=== PATIENT | male | born 1950 | race Caucasian/White ===

== ENCOUNTER 2024-01-17 11:48 | Inpatient (IN) | payer MEDICARE ==
[~2024-01-17] VITALS: Ht 182.9 cm; Wt 91.4 kg
[~2024-01-17 11:48] MED LIST: AMLODIPINE2.5 MG PO; ASPIRIN LOW DOS81 M2 PO; ASPIRIN81 M1 OR; BENAZEPRIL10 MG OR; BENICAR HCT1 TA2 PO; DIOVAN320 MG OR; LIPITOR20 M1 PO; LOSARTAN/HCT1 TA2 PO; OMEGA-3 FISH1000 MG PO; PERCOCET 5/325M1 TAB PO; TRICOR145 MG OR; VITAMIN D31000 UNI1 PO
--- NOTE | 2024-01-17 12:15 | NUR ---
Patient arrived to unit, ambulatory. Accompanied by . Patient was direct admit from Dr Reese office, patient has suspected osteomyelitis of toe. Plan for procedure tomorrow. Patient is A&Ox4, on room air, denies any pain at this time. Oriented to room, call light, plan of care, etc. All needs addressed at this time.
[2024-01-17] MEDS ORDERED: CHLORTHALIDONE25 MG PO (12:24)
[2024-01-17] MEDS ORDERED: TAMSULOSIN0.4 MG PO (12:25)
[2024-01-17 12:43] VITALS: BP 137/80
[2024-01-17 13:29] LABS: BASO% 0.2 % (0-3); EOS% 1.8 % (0-8); HEMATOCRIT 44.6 % (39.0-50.0); HEMOGLOBIN 15.2 g/dl (14.0-18.0); LYMPH% 26.8 % (15-41); MEAN CELL VOLUME 92.5 fL CALC (80.0-100.0); MEAN CORPUSCULAR HGB 31.5 pG CALC (26.0-32.0); MEAN CORPUSCULAR HGB CONC 34.1 g/dL CAL (32.0-36.0); MONO% 13.6 % (2-13); NEUT# 2.54 thou/uL (1.82-7.42); NEUT% 57.6 % (42-76); RED BLOOD COUNT 4.82 mill/uL (4.70-6.10); RED CELL DISTRI WIDTH 12.2 % (11.5-15.5)
[2024-01-17 13:46] LABS: ALBUMIN 3.9 g/dL (3.2-5.0); BILIRUBIN, TOTAL 0.7 mg/dL (0.2-1.3); CREATININE 1.3 mg/dL (0.7-1.3); POTASSIUM 3.5 mmol/l (3.5-5.1); TOTAL PROTEIN 7.2 g/dL (6.3-8.2)
[2024-01-17] MEDS ORDERED: LORazepam 0.5 MG/TAB PO PRN (14:45)
[2024-01-17] MEDS ORDERED: SODIUM CHLORIDE 0.9% 10 ML SYR IV PRN (14:45)
[2024-01-17] MEDS ORDERED: Polyethylene Glycol 3350 17 GM/PKT PO PRN (14:45)
[2024-01-17] MEDS ORDERED: ACETAMINOPHEN 325 MG/TAB PO PRN (14:45)
[2024-01-17] MEDS ORDERED: ALUM & MAG HYDROX-SIMETHICONE 30 ML PO PRN (14:45)
[2024-01-17 14:46] LABS: URINE BILIRUBIN - DIPSTICK Negative (NEGATIVE); URINE BLOOD DIPSTICK Negative (NEGATIVE); URINE GLUCOSE - DIPSTICK Negative (NEGATIVE); URINE KETONE Negative (NEGATIVE); URINE LEUK ESTERASE Negative (NEGATIVE); URINE NITRITE - DIPSTICK Negative (Negative); URINE PROTEIN - DIPSTICK 100 mg/dL (NEG-TRACE); URINE SPECIFIC GRAVITY 1.025; URINE UROBILINOGEN - DIPSTICK 0.2 E.U./dL (0.2)
[2024-01-17 14:48] LABS: URINE COLOR Yellow; URINE RBC 0-2 RBC/hpf (0-5); URINE WBC 0-2 WBC/hpf (0-5)
[2024-01-17] MEDS ORDERED: CEFEPIME HYDROCHLORIDE 2 GM in SODIUM CHLORIDE 0.9% 100 ML IV SCH (15:30)
[2024-01-17] MEDS ORDERED: VANCOMYCIN HCL 1 GM in SODIUM CHLORIDE 0.9% 250 ML IV SCH (16:00)
--- NOTE | 2024-01-17 16:00 | NUR ---
Patient is resting in bed, denies any pain at this time. A&Ox4, on room air, VS WNL, paced on tele monitor. Patient will be NPO after midnight tonight and patient is aware. All needs addressed at this time, call light within reach.
[2024-01-17 16:13] VITALS: BP 142/86
[2024-01-17] MEDS ORDERED: ATORVASTATIN CALCIUM 20 MG/TAB PO SCH (17:00)
[2024-01-17 18:47] VITALS: BP 136/77
[2024-01-17 19:36] VITALS: BP 136/77
--- NOTE | 2024-01-17 20:00 | NUR ---
RECIEVED PT IN BED, AWAKE, IN STABLE CONDITION. A/O X4. DENIES PAIN/DISCOMFORT AT THIS TIME. TELEMETRY #20, ROOM AIR, NO SIGNS OF DISTRESS. INDEPENDENT WITH ADL'S. ENCOURAGE TO CALL FOR ASSISTANCE WHEN NEEDED. CALL LIGHT IN REACH. WILL CONTINUE TO MONITOR.
[2024-01-17] MEDS ORDERED: DEXTROSE 5% / 0.9% NACL 1,000 ML IV PRN (21:00)
[2024-01-17] MEDS ORDERED: TAMSULOSIN HCL 0.4 MG CAP PO SCH (21:00)
[2024-01-17 23:48] VITALS: BP 144/83
[2024-01-18] VITALS (17 sets, daily range): BP systolic 129–182; BP diastolic 76–100
--- NOTE | 2024-01-18 | NUR ---
PT RESTING IN BED QUIETLY. NO COMPLAINTS. NPO FOR PROCEDURE IN AM. IV TO RFA WITH D5NS INFUSING AT 100 ML/HR. CALL LIGHT IN REACH.
--- NOTE | 2024-01-18 04:00 | NUR ---
PT AWAKE TO BATHROOM IN STABLE CONDITION. DENIES DISCOMFORT/DISTRESS. ENCOURAGE TO CALL FOR ASSISTANCE. CALL LIGHT IN REACH.
[2024-01-18 04:57] LABS: BASO% 0.7 % (0-3); EOS% 3.6 % (0-8); HEMATOCRIT 43.9 % (39.0-50.0); IMMATURE GRANULOCYTES 0.2 % (0.0-5.0); LYMPH% 28.8 % (15-41); MEAN CELL VOLUME 95.9 fL CALC (80.0-100.0); MEAN CORPUSCULAR HGB 32.8 pG CALC (26.0-32.0); MEAN CORPUSCULAR HGB CONC 34.2 g/dL CAL (32.0-36.0); NEUT# 2.5 thou/uL (1.82-7.42); NEUT% 56.7 % (42-76); RED BLOOD COUNT 4.58 mill/uL (4.70-6.10); RED CELL DISTRI WIDTH 12.3 % (11.5-15.5)
[2024-01-18 05:25] LABS: ALBUMIN 3.5 g/dL (3.2-5.0); BILIRUBIN, TOTAL 0.9 mg/dL (0.2-1.3); POTASSIUM 3.6 mmol/l (3.5-5.1); TOTAL PROTEIN 6.2 g/dL (6.3-8.2)
[2024-01-18 05:30] LABS: MAGNESIUM 1.3 mg/dL (1.6-2.3)
--- NOTE | 2024-01-18 07:32 | NUR ---
PT IS AOX4 RESTING COMFORTABLY IN BED. RESPIRATIONS ARE EVEN AND UNLABORED, LUNGS ARE CLEAR, BOWEL SOUNDS ARE ACTIVE, PEDAL PULSES ARE PALPABLE TO TOUCH, 3RD TOE ON LEFT FOOT IS SWOLLEN. PT DENIES PAIN AT THIS TIME. NPO STATUS REINFORCED. PT REPORTS HE ALREADY SPOKE TO THE DOCTOR THIS MORNING AND SIGNED CONCENT WITH ROCK DUSTER NURSE.
[2024-01-18] MEDS ORDERED: PATIENT' OWN MED 1 EA DOSE PO SCH (09:00)
[2024-01-18] MEDS ORDERED: amLODIPine BESYLATE 5 MG/TAB PO SCH (09:00)
--- NOTE | 2024-01-18 09:08 | NUR ---
S: CECILIA WEBSTER is a 73 M who presents with osteomyelitis. He has a history of HTN, BPH, pacemaker of HTN. All medications in patient's chart were reviewed. O: VS: BP 135/84mmHg, P 60bpm, RR 20breaths/min, T 96.3 F W 91.4 kg, HT 182.88 cm, Scr=1.0 mg/dL, CrCl= 83.8 ml/min A: No cultures have been ordered. P: Patient is on Cefepime HCl 2gm IV Q12H. Vancomycin ordered for pharmacy to dose. Start Vancomycin 1gm IV Q12H. Vancomycin trough is drawn before the dose on 01/19/2024 at 03:30. Vancomycin goal trough is between 15-20 mcg/mL. Pharmacy will follow and or advise on antibiotics use as needed.
--- NOTE | 2024-01-18 09:16 | NUR ---
CALL PLACED TO DR TEMPLE TO SEE IF PT IS TO TAKE THE PO CHOLRTHALIDONE THIS MORNING. WAS TOLD TO HOLD THE DIAREDIC AT THIS TIME.
[2024-01-18] MEDS ORDERED: MAGNESIUM SULFATE HEPTAHYDRATE 100 ML IV SCH (09:30)
--- NOTE | 2024-01-18 10:56 | NUR ---
PT OFF THE FLOOR VIA STAFF TRANSPORT FOR SX.
[2024-01-18] MEDS ORDERED: BUPIVACAINE HCL PF 0.5% 30 ML VIAL ONE (11:01)
[2024-01-18] MEDS ORDERED: LACTATED RINGER'S 1,000 ML IV ONE ×2 (11:14→13:38)
[2024-01-18] MEDS ORDERED: FAMOTIDINE 10MG/ML 2ML SDV IV ONE (11:20)
[2024-01-18] MEDS ORDERED: LIDOCAINE HCL 2% 2ML SDV IV ONE (12:39)
[2024-01-18] MEDS ORDERED: PROPOFOL 200 MG/20 ML VIAL IV ONE (12:39)
--- NOTE | 2024-01-18 13:59 | NUR ---
PT RETURNED TO UNIT WITH BANDAGED LEFT FOOT, PT DENIES PAIN AT THIS TIME.
[2024-01-18] MEDS ORDERED: SODIUM CHLORIDE 1,000 ML BTL IR ONE (14:21)
[2024-01-18] MEDS ORDERED: STERILE WATER FOR IRRIGATION 1,000 ML BTL IR ONE (14:21)
--- NOTE | 2024-01-18 19:20 | NUR ---
PATIENT OBSERVED RESTING IN BED. ALERT AND ORIENTED. ABLE TO MAKE NEEDS KNOWN. ASSESSMENT COMPLETE. DENIES ANY PAIN TO LEFT FOOT. DRESSING INTACT WITH JESSI BANDAGE WELL. FOOT REMAINS ELEVATED WITH PILLOW FOR PATIENT COMFORT. NO DISTRESS NOTED. BED IN LOW POSITION. CALL GEIGER IN REACH.
--- NOTE | 2024-01-19 00:58 | NUR ---
PATIENT OBSERVED RESTING IN BED WATCHING TV. NO DISTRESS NOTED. NO COMPLAINTS OF PAIN. BED REMAINS IN LOW POSITION. CALL GEIGER IN REACH.
[2024-01-19 03:25] VITALS: BP 130/79
[2024-01-19 03:53] LABS: BASO% 0.4 % (0-3); EOS% 3.7 % (0-8); HEMATOCRIT 43.7 % (39.0-50.0); HEMOGLOBIN 14.6 g/dl (14.0-18.0); IMMATURE GRANULOCYTES 0.2 % (0.0-5.0); LYMPH% 19.9 % (15-41); MEAN CELL VOLUME 94.6 fL CALC (80.0-100.0); MEAN CORPUSCULAR HGB 31.6 pG CALC (26.0-32.0); MEAN CORPUSCULAR HGB CONC 33.4 g/dL CAL (32.0-36.0); MONO% 10.7 % (2-13); NEUT# 2.98 thou/uL (1.82-7.42); NEUT% 65.1 % (42-76); RED BLOOD COUNT 4.62 mill/uL (4.70-6.10); RED CELL DISTRI WIDTH 12.2 % (11.5-15.5)
[2024-01-19 04:36] LABS: ALBUMIN 3.4 g/dL (3.2-5.0); MAGNESIUM 1.7 mg/dL (1.6-2.3); TOTAL PROTEIN 6.2 g/dL (6.3-8.2)
[2024-01-19 04:53] VITALS: BP 130/79
--- NOTE | 2024-01-19 04:54 | NUR ---
PATIENT REMAINS RESTING IN BED. ANITA MC AFTER REVIEWING TROUGH RESULT. PATIENT DENIES ANY PAIN TO LEFT FOOT. NO NEEDS AT THIS TIME.
[2024-01-19 06:55] VITALS: BP 153/83
--- NOTE | 2024-01-19 07:00 | NUR ---
DR ERVIN AT BEDSIDE GIVING AIRCRAFT PAINTER APPRENTICE NURSE ORDERS FOR SCHEDULED TYLENOL AND PRN OXYCODONE 10MG Q4.
[2024-01-19] MEDS ORDERED: oxyCODONE 10MG/APAP 325 MG 1 COMBO TAB PO PRN (07:35)
--- NOTE | 2024-01-19 07:52 | NUR ---
PATIENT A&OX3. BREATHING EVEN AND UNLABORED ON ROOM AIR. LUNG SOUNDS CLEAR. BOWELS ACTIVE IN ALL 4 QUADS. IV IN RAC INFUSING NS @100MLS. IV SITE CLEAN AND INTACT. TELE INTACT. LFT FOOT DRESSING D/C/I. DENIES ANY N/D/V. REPORTS PAIN IN LFT FOOT A 7 OUT OF 10. MEDICATION REVIEWED. BED IN LOWEST POSITION. PERSONAL ITEMS WITHIN REACH. CALL LIGHT IN REACH; PT VERBALIZED UNDERSTANDING OF USE. NO NEEDS AT THIS TIME.
--- NOTE | 2024-01-19 08:49 | NUR ---
IN ROOM WITH PT DISCUSSING PLAN OF CARE.
[2024-01-19] MEDS ORDERED: DOXYCYCLINE100 MG PO (09:23)
[2024-01-19 10:36] VITALS: BP 122/79
--- NOTE | 2024-01-19 11:15 | NUR ---
REMOVED PT'S TELE AND PLACED IN BIN AT NURSING CART. UC NOTIFIED AND AWARE.
--- NOTE | 2024-01-19 11:25 | NUR ---
DC'D PT'S IV, PT LEFT THE UNIT VIA WHEELCHAIR TRANSPOUT WITH BELONGINGS IN HAND.
[2024-01-19] MEDS ORDERED: ACETAMINOPHEN 325 MG/TAB PO SCH (12:00)
[2024-01-19] MEDS ORDERED: VANCOMYCIN HCL 1,250 MG in SODIUM CHLORIDE 0.9% 225 ML IV SCH (16:00)
== END 2024-01-19 11:25 | DRG 505 ==
LOC: MS2 11:48
PROVIDERS: Nurse Practitioner Family; ADMIT Internal Medicine; ATTEND Internal Medicine
PROC: 0Y6U0Z0 Detachment at Left 3rd Toe, Complete, Open Approach (ICD-10-PCS; principal; 2024-01-18)
DX: M86.8X7 Other osteomyelitis, ankle and foot (principal); L03.032 Cellulitis of left toe; S91.105A Unspecified open wound of left lesser toe(s) without damage to nail, initial encounter; E83.42 Hypomagnesemia; I10 Essential (primary) hypertension; I25.10 Atherosclerotic heart disease of native coronary artery without angina pectoris; N40.0 Benign prostatic hyperplasia without lower urinary tract symptoms; X58.XXXA Exposure to other specified factors, initial encounter; Z95.0 Presence of cardiac pacemaker
CPT/HCPCS: J0692; J3370; J3475

== ENCOUNTER 2024-06-17 14:41 | Inpatient (IN) | payer MEDICARE ==
[~2024-06-17] VITALS: Ht 182.9 cm; Wt 85.0 kg
[2024-06-17] VITALS (26 sets, daily range): BP systolic 113–149; BP diastolic 74–95
[~2024-06-17 14:41] MED LIST changes: +APIXABAN BASE 5 MG TAB PO SCH; +CHLORTHALIDONE25 MG PO; +DOXYCYCLINE100 MG PO; +TAMSULOSIN0.4 MG PO
--- NOTE | 2024-06-17 14:50 | NUR ---
PT TRIAGED AND PLACED BACK IN ER WAITING
[2024-06-17 16:07] LABS: BASO% 0.2 % (0-3); EOS% 1.1 % (0-8); HEMATOCRIT 42.9 % (39.0-50.0); HEMOGLOBIN 14.5 g/dl (14.0-18.0); IMMATURE GRANULOCYTES 0.5 % (0.0-5.0); LYMPH% 7.1 % (15-41); MEAN CORPUSCULAR HGB 30.1 pG CALC (26.0-32.0); MEAN CORPUSCULAR HGB CONC 33.8 g/dL CAL (32.0-36.0); MONO% 9.4 % (2-13); NEUT# 10.89 thou/uL (1.82-7.42); NEUT% 81.7 % (42-76); RED BLOOD COUNT 4.82 mill/uL (4.70-6.10); RED CELL DISTRI WIDTH 13.4 % (11.5-15.5)
[2024-06-17 16:18] LABS: BILIRUBIN, TOTAL 1.4 mg/dL (0.2-1.3); CREATININE 1.2 mg/dL (0.7-1.3); POTASSIUM 3.6 mmol/l (3.5-5.1)
[2024-06-17 16:19] LABS: ALBUMIN 4.3 g/dL (3.2-5.0); TOTAL PROTEIN 8.1 g/dL (6.3-8.2)
--- NOTE | 2024-06-17 16:50 | NUR ---
JEISON TO ROOM 15
[2024-06-17] MEDS ORDERED: DOXYCYCLINE HYCLATE 100 MG in SODIUM CHLORIDE 0.9% 100 ML IV ONE (18:05)
--- NOTE | 2024-06-17 18:50 | NUR ---
Reassessment of patient completed. No distress noted.
--- NOTE | 2024-06-17 19:05 | NUR ---
TRANSITION OF CARE REPORT TO RJ NELSON
--- NOTE | 2024-06-17 19:05 | NUR ---
PT IN CT.
[2024-06-17] MEDS ORDERED: SODIUM CHLORIDE 0.9% 1,000 ML IV ONE (20:10)
[2024-06-17] MEDS ORDERED: ENOXAPARIN SODIUM 100 MG/ML SYR SC ONE (20:30)
[2024-06-17] MEDS ORDERED: ENOXAPARIN SODIUM 100 MG/ML SYR SC SCH (20:30)
[2024-06-17] MEDS ORDERED: ACETAMINOPHEN 325 MG/TAB PO PRN (21:10)
[2024-06-17] MEDS ORDERED: MAGNESIUM HYDROXIDE 30 ML UDC PO PRN (21:10)
[2024-06-17] MEDS ORDERED: Zaleplon 5 MG/CAP PO PRN (21:10)
--- NOTE | 2024-06-17 21:26 | NUR ---
TO CT AGAIN
[2024-06-17] MEDS ORDERED: Heparin SODIUM (Porcine) 5,000 UNITS/ML SDV IV ONE (23:40)
[2024-06-17] MEDS ORDERED: Heparin SODIUM (Porcine) 500 ML IV SCH (23:40)
--- NOTE | 2024-06-17 23:40 | NUR ---
DISCUSSED WITH ER PHYSICIAN/DR. TERRAZAS THE LOVONOX. ASKED THAT WE CONTACT Max ARGUETA ABOUT HERPARIN. LOVONOX HAS NOT YET BEEN GIVEN SO IT WAS DECIDED TO GO [facility] AND GIVEN HEPARIN PER [employer]. DR. TERRAZAS SIGNED/ENTERED ORDERS. FAXED TO PHARM. LOVOXOX WAS DC'D.
[2024-06-18] VITALS (14 sets, daily range): BP systolic 121–156; BP diastolic 68–88
[2024-06-18 00:35] LABS: INTERNATIONAL NORMALIZED RATIO 1.3 RATIO (0.7-1.3)
[2024-06-18 00:37] LABS: PROTHROMBIN TIME 13.9 SECONDS (9.0-12.5)
--- NOTE | 2024-06-18 01:00 | NUR ---
PT RESTING AWAITING TRANSPORT TO FLOOR NURSE CALLED IN ON M/S. PT TO FLOOR VIA STRETCHER WITH MONITOR BOX/HEP IV/NC @ 2 LPM. . UPON ARRIVAL TO FLOOR, PT AMBULATORY TO THE BED. NAD.
--- NOTE | 2024-06-18 01:50 | NUR ---
RECEIVED PATIENT FROM ED VIA STRETCHER. PATIENT AWAKE, ALERT AND ORIENTED X4. AMBULATORY WITH CANE, STANDBY ASSIST. VITALS OBTAINED, ASSESSMENT COMPLETE. HEPARIN DRIP AT 1500 UNITS/HR, IV SITE PATENT; PATIENT TOLERATING WELL. ADMISSION HISTORY OBTAINED. PATIENT ORIENTED TO ROOM AND INSTRUCTED ON USE OF BED CONTROLS AND CALL LIGHT. PATIENT STABLE AT THIS TIME, DENIES PAIN AND NO CONCERNS EXPRESSED. CALL LIGHT WITHIN REACH AND BED ALARM ACTIVATED.
[2024-06-18 05:22] LABS: BASO% 0.4 % (0-3); EOS% 1.6 % (0-8); HEMOGLOBIN 12.8 g/dl (14.0-18.0); IMMATURE GRANULOCYTES 0.4 % (0.0-5.0); LYMPH% 8.2 % (15-41); MEAN CELL VOLUME 89.4 fL CALC (80.0-100.0); MEAN CORPUSCULAR HGB 30.9 pG CALC (26.0-32.0); MEAN CORPUSCULAR HGB CONC 34.6 g/dL CAL (32.0-36.0); MONO% 12.3 % (2-13); NEUT# 8.59 thou/uL (1.82-7.42); NEUT% 77.1 % (42-76); RED BLOOD COUNT 4.14 mill/uL (4.70-6.10); RED CELL DISTRI WIDTH 13.5 % (11.5-15.5)
[2024-06-18] MEDS ORDERED: SODIUM CHLORIDE 0.9% 1,000 ML IV ONE (05:25)
[2024-06-18 05:29] LABS: BILIRUBIN, TOTAL 0.9 mg/dL (0.2-1.3); CREATININE 1.1 mg/dL (0.7-1.3); POTASSIUM 3.3 mmol/l (3.5-5.1)
[2024-06-18 05:30] LABS: ALBUMIN 3.3 g/dL (3.2-5.0); TOTAL PROTEIN 6.4 g/dL (6.3-8.2)
[2024-06-18 06:08] LABS: INTERNATIONAL NORMALIZED RATIO 1.3 RATIO (0.7-1.3)
[2024-06-18 06:09] LABS: ACT PARTIAL THROMBO TIME 79.1 SECONDS (20.0-32.5); PROTHROMBIN TIME 14.1 SECONDS (9.0-12.5)
--- NOTE | 2024-06-18 07:32 | NUR ---
RECIEVED REPOT FROM FIRE ALARM MECHANIC MICHAEL AND VERIFIED HEPARIN DRIP IS RUNNING AT 1350 WITH OFF GOING NURSE.
--- NOTE | 2024-06-18 07:47 | NUR ---
PT IS AOX4, RESPIRATIONS ARE EVEN AND UNLABORED, LUNGS ARE DIM AT THE LEFT LOWER LUNG, CLEAR AT RIGHT LOWER LUNG, DIM AT BILATERAL UPPER LUNGS, BOWEL SOUNDS ARE ACTIVE, PEDAL PULSES ARE PALPABLE TO TOUCH, PT DENIES PAIN AT THIS TIME.
[2024-06-18] MEDS ORDERED: DOXYCYCLINE HYCLATE 100 MG in SODIUM CHLORIDE 0.9% 100 ML IV SCH (08:00)
[2024-06-18] MEDS ORDERED: ENOXAPARIN SODIUM 80 MG/0.8 ML SYR SC SCH (09:00)
--- NOTE | 2024-06-18 12:46 | NUR ---
HEPARIN DRIP DC'D REMAINING HEPARIN WASTED WITH TEETEE IN MEDROOM.
[2024-06-18] MEDS ORDERED: APIXABAN BASE 5 MG TAB PO SCH (13:00)
[2024-06-19] VITALS (8 sets, daily range): BP systolic 111–139; BP diastolic 63–80
--- NOTE | 2024-06-19 00:01 | NUR ---
PATIENT IN BED WITH EYES CLOSED WITH NO S/S OF DISTRESS OR DISCOMFORT. ABLE TO VERBALIZE NEEDS AND DENIES PAIN AND DISCOMFORT. MEDICATIONS GIVEN AND TOLERATED WELL. IV ANTIBIOTICS GIVEN AND TOLERATED WELL. CONTINENT OF B/B AND NO DIARRHEA NOTED. CALL LIGHT WITHIN REACH AND BED IN LOW POSITION. WILL CONTINUE TO OBSERVE.
[2024-06-19 06:05] LABS: BASO% 0.4 % (0-3); BILIRUBIN, TOTAL 0.7 mg/dL (0.2-1.3); CREATININE 0.9 mg/dL (0.7-1.3); EOS% 7.9 % (0-8); HEMATOCRIT 35.1 % (39.0-50.0); HEMOGLOBIN 11.9 g/dl (14.0-18.0); IMMATURE GRANULOCYTES 0.2 % (0.0-5.0); LYMPH% 12.9 % (15-41); MAGNESIUM 1.6 mg/dL (1.6-2.3); MEAN CELL VOLUME 90.2 fL CALC (80.0-100.0); MEAN CORPUSCULAR HGB 30.6 pG CALC (26.0-32.0); MEAN CORPUSCULAR HGB CONC 33.9 g/dL CAL (32.0-36.0); MONO% 14.4 % (2-13); NEUT# 5.46 thou/uL (1.82-7.42); NEUT% 64.2 % (42-76); POTASSIUM 3.7 mmol/l (3.5-5.1); RED BLOOD COUNT 3.89 mill/uL (4.70-6.10); RED CELL DISTRI WIDTH 13.5 % (11.5-15.5); TOTAL PROTEIN 5.9 g/dL (6.3-8.2)
--- NOTE | 2024-06-19 07:08 | NUR ---
PATIENT LAYING IN BED. PATIENT A&OX3 AND ABLE MAKE NEEDS KNOWN. PATIENT DNIES ANY NEEDS AT THIS TIME.
--- NOTE | 2024-06-19 11:47 | NUR ---
PATIENT LAYING IN BED. SPOUSE AT BEDSIDE. PATIENT DENIES ANY NEEDS AT THIS TIME.
--- NOTE | 2024-06-19 12:39 | NUR ---
pt glucose is 158
--- NOTE | 2024-06-19 15:58 | NUR ---
PATIENT LAYING IN BED. SPOUSE AT BEDSIDE. PATIENT DENIES ANY NEEDS AT THIS TIME.
[2024-06-20 05:05] VITALS: BP 114/68
[2024-06-20 05:05] LABS: BASO% 0.4 % (0-3); EOS% 8.8 % (0-8); HEMOGLOBIN 11.9 g/dl (14.0-18.0); IMMATURE GRANULOCYTES 0.4 % (0.0-5.0); LYMPH% 15.7 % (15-41); MEAN CELL VOLUME 89.1 fL CALC (80.0-100.0); MEAN CORPUSCULAR HGB 30.3 pG CALC (26.0-32.0); MONO% 13.4 % (2-13); NEUT# 4.24 thou/uL (1.82-7.42); NEUT% 61.3 % (42-76); RED BLOOD COUNT 3.93 mill/uL (4.70-6.10); RED CELL DISTRI WIDTH 13.3 % (11.5-15.5)
[2024-06-20 05:15] LABS: ALBUMIN 3.1 g/dL (3.2-5.0); BILIRUBIN, TOTAL 0.6 mg/dL (0.2-1.3); MAGNESIUM 1.6 mg/dL (1.6-2.3); POTASSIUM 3.8 mmol/l (3.5-5.1); TOTAL PROTEIN 6.1 g/dL (6.3-8.2)
--- NOTE | 2024-06-20 05:50 | NUR ---
PT REMAINED STABLE FOR THE ENTIRETY OF THE SHIFT. CALL LIGHT IN REACH AND NO DISTRESS NOTED
[2024-06-20 07:35] VITALS: BP 111/74
--- NOTE | 2024-06-20 08:00 | NUR ---
PT IS IN ROOM EATING BREAKFAST. PT IS AOX4 VITALS WNL NO COMPLAINTS AT THIS TIME. CALL LIGHT IS IN REACH
[2024-06-20 11:20] VITALS: BP 115/67
[2024-06-20] MEDS ORDERED: ELIQUIS5 MG PO (12:25)
[2024-06-20] MEDS ORDERED: DOXYCYCLINE100 MG PO (12:34)
--- NOTE | 2024-06-21 14:03 | NUR ---
Discharge follow up call completed 06/21/24. Patient states he is feeling much better and has had no issues since discharge. Patient has prescribed medication and is taking as directed. Patient has a follow up appointment with his PCP next week. No needs or concerns verbalized at this time. Patient is appreciative of the follow up call.
[2024-06-25] MEDS ORDERED: APIXABAN BASE 5 MG TAB PO SCH ×2 (09:00)
== END 2024-06-20 14:21 | disposition home or self-care (01) | DRG 175 ==
LOC: ED 14:41 → ED-I 20:21 → ED 20:36 → MS2 20:37
PROVIDERS: Family Medicine; Nurse Practitioner Family; ADMIT Internal Medicine; ATTEND Internal Medicine
DX: I26.99 Other pulmonary embolism without acute cor pulmonale (principal); J18.9 Pneumonia, unspecified organism; I10 Essential (primary) hypertension; I25.10 Atherosclerotic heart disease of native coronary artery without angina pectoris; N40.0 Benign prostatic hyperplasia without lower urinary tract symptoms; Z95.0 Presence of cardiac pacemaker; Z20.822 Contact with and (suspected) exposure to COVID-19
CPT/HCPCS: G0378; J0696; J1644; Q9967